=== PATIENT | female | born 1990 ===

== ENCOUNTER 2021-06-27 09:56 | Observation (INO) | payer SELFPAY ==
[~2021-06-27] VITALS: Ht 147.3 cm; Wt 44.5 kg
[2021-06-27] VITALS (15 sets, daily range): BP systolic 73–101; BP diastolic 37–58; PULSE 59–83; TEMP 98.5
--- NOTE | 2021-06-27 10:33 | NUR ---
Presents to [facility], transferred from [place]. Assisted to bed from cart. Report given by ems. Patient states having abdominal pain. 1050 Patient passed softball clot, shown to Dr. Payton. Orders for lab.
[2021-06-27] MEDS ORDERED: AMBIEN 5MG TABLE5 MG PO (11:00)
[2021-06-27 11:04] LABS: BASO % 0.3 % (0.0-2.0); EOS # 0.1 K/mm3 (0.0-0.7); EOS % 0.8 % (0.0-4.0); GRAN # 7.4 K/mm3 (1.4-6.5); GRAN % 73.3 % (42.2-75.2); HEMOGLOBIN 10.3 g/dl (12.5-16.0); LYMPH # 2.1 K/mm3 (1.2-3.4); LYMPH % 20.9 % (20.0-51.0); MEAN CELL VOLUME 95 fl (80.0-100.0); MEAN CORPUSCULAR HEMOGLOBIN 33 pg (27-31); MEAN CORPUSCULAR HGB CONC 35 g/dl (33.0-37.0); MEAN PLATELET VOLUME 9.4 fl (7.4-10.4); MONO # 0.4 K/mm3 (0.1-0.6); MONO % 4.2 % (1.7-9.3); PLATELET COUNT 221 K/mm3 (130-400); RED BLOOD COUNT 3.14 M/mm3 (4.10-5.30); REDCELL DISTRIBUTION WIDTH-CV 13.3 % (11.5-14.5)
[2021-06-27 11:05] LABS: HEMATOCRIT 29.7 % (37.0-47.0)
--- NOTE | 2021-06-27 11:20 | NUR ---
Ambulates to the o.r. with two with this r.n. and Anelise.
[2021-06-27] MEDS ORDERED: MOTRIN 800800 MG/TAB PO ×2 (11:41→11:53)
[2021-06-27] MEDS ORDERED: MONODOX100 PO ×2 (11:42→11:52)
[2021-06-27] MEDS ORDERED: PERCOCET 325 MG1 TA2 PO ×2 (11:42→11:53)
--- NOTE | 2021-06-27 11:45 | NUR ---
Back to room via bed with two r.n.s Rests with eyes closed at this time. Awakens with verbal stimuli. Significant other at bedside. Anesthesia Glasco here. Denies any discomfort at this time.
--- NOTE | 2021-06-27 13:25 | NUR ---
1325Patient requesting discharge. Rn at bedside. Assisted pt to bathroom to void. Patient voids and changes into clothes. 1335Discharge instructions reviewed with patient and SO who verbalize understanding. Off unit to private vehicle via wheelchair.
== END 2021-06-27 13:35 | disposition home or self-care (01) ==
LOC: LDR 10:56
PROVIDERS: ADMIT Obstetrics & Gynecology
DX: O03.4 Incomplete spontaneous abortion without complication (principal)
CPT/HCPCS: J1885; J2250; J2405; J2704; J3010; J7120